=== PATIENT | male | born 1960 | race Caucasian/White ===

== ENCOUNTER 2024-07-12 18:11 | Emergency (ER) | payer MEDICARE ==
[~2024-07-12] VITALS: Ht 175.3 cm; Wt 65.8 kg
[2024-07-12 18:11] VITALS: BP_SYST 128; PULSE 82; RESP 16; TEMP 97.6; O2SAT 98
== END 2024-07-12 18:54 ==
LOC: SED 18:11
DX: Z02.89 Encounter for other administrative examinations (principal); F17.200 Nicotine dependence, unspecified, uncomplicated; I10 Essential (primary) hypertension; Z98.890 Other specified postprocedural states; Z88.0 Allergy status to penicillin
CPT/HCPCS: 99283